=== PATIENT | male | born 1940 | race Caucasian/White ===

== ENCOUNTER → 2017-02-08 | Outpatient (CLI) | payer MEDICARE ==
[~2017-02-08] MED LIST: CLOPIDOGREL BISULFATE 75 MG TABLET ONE; EPTIFIBATIDE BOLUS 2,000 MCG/ML 10ML VIAL. IV ONE; HEPARIN SODIUM 5,000 UNIT/ML VIAL for PCVC. ONE; IODIXANOL 270 MG/ML 100 ML VIAL. ONE; IV NORMAL SALINE 500ML BAG 500 ML ONE; LIDOCAINE 1% Multi-Dose 20 ML VIAL. ONE; LIDOCAINE 1%/EPI 1:100,000 20 ML VIAL. ONE; hydrALAZINE 20 MG/ML VIAL. ONE
--- NOTE | 2017-02-08 14:02 | PCVCINTER ---
EXAM: 1. AORTOGRAM AND RIGHT LOWER EXTREMITY RUNOFF ANGIOGRAM 2. BILATERAL RENAL ANGIOGRAPHY 3. RIGHT SUPERFICIAL FEMORAL ARTERY ATHERECTOMY AND STENT PLACEMENT. 4. SECONDARY THROMBECTOMY RIGHT SUPERFICIAL FEMORAL ARTERY. 5. DRUG COATED BALLOON ANGIOPLASTY RIGHT POPLITEAL ARTERY. INDICATION: Peripheral arterial disease. Coronary artery disease. Nonhealing ulcer right lower extremity. Hypertension. Renal atherosclerosis. PROCEDURE: Procedure and risks of angiography intervention is appropriate including limb loss stroke and were discussed with the patient's family and consent obtained. The patient's left groin was prepped abnormal sterile fashion. IV conscious sedation was used to procedure with appropriate monitoring from 11:15 AM through 12:45 PM. Ultrasound was used to interrogate the left groin and showed the left common femoral artery to be patent. A permanent spot film was obtained. Under ultrasound guidance access into the left common femoral artery was obtained and a 5 Sinhala sheath was placed. Through this a 5 Sinhala flush catheter was placed into the abdominal aorta at the level of the renal arteries and AP aortogram was performed. Catheter was positioned at the aortic bifurcation and both oblique views of the pelvis were obtained. Catheter was exchanged for a visceral catheter was placed into the right renal arteries and right renal angiograms obtained. Catheter was placed into the the left renal arteries and left renal angiograms were obtained. Catheter was advanced to the level of the right external iliac artery and right leg runoff angiography was obtained. Patient was given 4500 units of heparin. A 6 Sinhala crossover sheath was placed via the left groin to the level of the right common femoral artery. Atherectomy of the right superficial femoral artery was performed with 2.0 mm [employer] laser atherectomy catheter in the standard fashion. Following atherectomy small areas of thrombus were observed and because of this secondary thrombectomy throughout the right superficial femoral artery was carried out with mechanical suction thrombectomy catheter in the standard fashion. Minimal debris was removed. Stent placement across the areas of occlusion in the right artery was carried out with a 6 x 150 and 8 x 40 Smart control stents with subsequent dilatation to 6.0 mm. Following this drug coated balloon angioplasty of the right superficial femoral artery was carried out with a 5 x 80, 6 x 80, 6 x 80, and 6 x 60 Medtronic Admiral [employer] catheters. Follow-up angiogram was performed. Catheters and wires removed. Sheath was removed and hemostasis obtained using the FISH device. No immediate complications. FINDINGS: Aortogram: There is one right and one left renal artery. Mild plaque infrarenal abdominal aorta without significant stenosis. Pelvis: The right and left common and external iliac arteries are patent with mild scattered plaque. The right and left internal iliac arteries are patent. The right and left common femoral and profunda femoral arteries are patent. The proximal left superficial femoral artery is occluded where visualized. Right renal artery: Minimal plaque proximal vessel does not cause significant stenosis. Left renal artery: Minimal plaque proximal vessel does not cause significant stenosis. Right leg: Complete occlusion throughout the mid superficial femoral artery. Refilling of the distal superficial femoral artery. Moderate high-grade stenoses in the mid and distal popliteal artery. Tibioperoneal trunk shows segmental occlusion. There is refilling of a large peroneal artery which is continuous to the ankle to refill the distal most posterior tibial artery. The [place] anterior tibial artery is occluded proximally. A large well-developed collateral refills the mid/distal anterior tibial artery. Right superficial femoral artery: Following procedure as above vessel shows good patency throughout. 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 Areas of significant stenosis mid/distal right popliteal artery with segmental occlusion right tibioperoneal trunk. I'm hopeful by improving the inflow this will allow healing of the patient's right foot wound. I'll follow-up with the patient in 4-6 weeks regarding his progress. If ulceration persists further consideration for treatment of the mid/distal right popliteal and right tibioperoneal trunk disease will be discussed. follow up LOC:[id number]
== END | disposition home or self-care (01) ==
LOC: PCVCINTER 09:23
PROVIDERS: ATTEND Nuclear Medicine Nuclear Cardiology
DX: I70.211 Atherosclerosis of native arteries of extremities with intermittent claudication, right leg (principal); I25.10 Atherosclerotic heart disease of native coronary artery without angina pectoris; I10 Essential (primary) hypertension; I70.1 Atherosclerosis of renal artery
CPT/HCPCS: 36252; 37186; 37227; 75710; 76937; 99152; 99153; C1725; C1751; C1757; C1760; C1769; C1876; C1885; C1887; C1894; C2623; J0360; J0690; J1327; J1644; J3490; J7040; Q9966; 75716

== ENCOUNTER → 2017-02-16 | Outpatient (CLI) | payer MEDICARE | END | disposition home or self-care (01) | LOC: PCVCCLINIC 13:20 | PROVIDERS: ATTEND Internal Medicine Cardiovascular Disease | DX: I25.810 Atherosclerosis of coronary artery bypass graft(s) without angina pectoris (principal); I48.1 Persistent atrial fibrillation; I73.9 Peripheral vascular disease, unspecified; E78.00 Pure hypercholesterolemia, unspecified; I12.9 Hypertensive chronic kidney disease with stage 1 through stage 4 chronic kidney disease, or unspecified chronic kidney disease; N18.9 Chronic kidney disease, unspecified; I25.2 Old myocardial infarction; Z89.612 Acquired absence of left leg above knee; Z79.01 Long term (current) use of anticoagulants; Z95.1 Presence of aortocoronary bypass graft; Z79.82 Long term (current) use of aspirin; Z79.899 Other long term (current) drug therapy | CPT/HCPCS: 80061; 93005; G0463 ==

== ENCOUNTER → 2017-03-15 | Outpatient (CLI) | payer MEDICARE | END | disposition home or self-care (01) | LOC: PCVCIMAG 14:06 | DX: I73.9 Peripheral vascular disease, unspecified (principal); I65.23 Occlusion and stenosis of bilateral carotid arteries | CPT/HCPCS: 80061; 93005; 93880; 93926; G0463 ==

== ENCOUNTER → 2017-06-23 | Outpatient (CLI) | payer MEDICARE | END | disposition home or self-care (01) | LOC: PCVCCLINIC 13:00 | DX: I25.10 Atherosclerotic heart disease of native coronary artery without angina pectoris (principal); E78.5 Hyperlipidemia, unspecified; I48.2 Chronic atrial fibrillation; I12.9 Hypertensive chronic kidney disease with stage 1 through stage 4 chronic kidney disease, or unspecified chronic kidney disease; N18.4 Chronic kidney disease, stage 4 (severe); I73.9 Peripheral vascular disease, unspecified; I77.9 Disorder of arteries and arterioles, unspecified; R94.31 Abnormal electrocardiogram [ECG] [EKG]; Z79.82 Long term (current) use of aspirin; Z79.899 Other long term (current) drug therapy | CPT/HCPCS: 80061; 93005; G0463 ==

== ENCOUNTER → 2017-09-22 | Outpatient (CLI) | payer MEDICARE | END | disposition home or self-care (01) | LOC: PCVCCLINIC 16:13 | DX: I12.9 Hypertensive chronic kidney disease with stage 1 through stage 4 chronic kidney disease, or unspecified chronic kidney disease (principal); N18.9 Chronic kidney disease, unspecified; I25.810 Atherosclerosis of coronary artery bypass graft(s) without angina pectoris; I73.9 Peripheral vascular disease, unspecified; I25.5 Ischemic cardiomyopathy; I48.91 Unspecified atrial fibrillation; I48.92 Unspecified atrial flutter; E78.00 Pure hypercholesterolemia, unspecified; I77.9 Disorder of arteries and arterioles, unspecified; Z79.82 Long term (current) use of aspirin; Z79.899 Other long term (current) drug therapy | CPT/HCPCS: 93005; G0463 ==

== ENCOUNTER → 2018-02-20 | Outpatient (CLI) | payer MEDICARE ==
[~2018-02-20] MED LIST changes: -CLOPIDOGREL BISULFATE 75 MG TABLET ONE; -EPTIFIBATIDE BOLUS 2,000 MCG/ML 10ML VIAL. IV ONE; -HEPARIN SODIUM 5,000 UNIT/ML VIAL for PCVC. ONE; -IODIXANOL 270 MG/ML 100 ML VIAL. ONE; -IV NORMAL SALINE 500ML BAG 500 ML ONE; -LIDOCAINE 1% Multi-Dose 20 ML VIAL. ONE; -LIDOCAINE 1%/EPI 1:100,000 20 ML VIAL. ONE; +REGADENOSON 0.4 MG/5 ML DISP.SYRIN. IV ONE; -hydrALAZINE 20 MG/ML VIAL. ONE
--- NOTE | 2018-02-22 17:53 | PCVCIMAG ---
APPROVED REPORT Imaging Protocol: Rest Tc-99m/Stress Tc-99m 1 day Study performed: 02/20/2018 09:41:43 Indication: CAD , Atrial Fibrillation, ICM Patient Location: Out-Patient Stress Nurse: Colleen Kelley RN [place] Tech:Angie Mayfield [facility] Ht: 6 ft 1 in Wt: 235 lbs BSA: 2.30 m2 HR: 85 bpm BP: 162/86 mmHg BMI: 31.0 Rhythm: SR Medical History Medical History: HTN, CAD, PVD, Atrial Fibrillation, Age Medications: Xarelto Allergies: No known drug allergies Previous Cardiac Procedures: CABG 2017 - [place] to LAD and distal LAD; SVG to OM; SVG to PDA Pretest Chest Pain Characteristics: No chest pain Meds Held (24 hrs): Metoprolol Resting Data Rest SPECT myocardial perfusion imaging was performed in supine position 45 minutes following the intravenous injection of 11.2 mCi of Tc-99m Sestamibi. Time of rest injection: 0850 Date: 02/20/2018 Administration Route: IV Administration Site: Right AC Pharmacologic Stress Pharmacologic stress test was performed by injecting Regadenoson 0.4 mg IV push over 10-15 seconds immediately followed by the intravenous injection of 33.6 mCi of Tc-99m Sestamibi. Time of stress injection: 1030 Date: 02/20/2018 Administration Route: IV Administration Site: Right AC Gated Stress SPECT was performed 45 minutes after stress injection. The images were gated to evaluate regional wall motion and calculate left ventricular ejection fraction. Stress Test Details Stress Test: Pharmacologic stress testing performed using 0.4 mg of regadenoson per 5 mL given IV over 10 seconds. Reason for pharmacologic stress test: physical limitation, bilateral BTK amputation. HRMax Heart Rate (APMHR): 144 bpm Resting HR: 85 bpmTarget HR (85% APMHR): 122 bpm Max HR Achieved: 94 bpm % of APMHR: 65 Recovery HR: 78 bpm BP Resting BP: 162/86 mmHg Recovery BP: 136/73 mmHg ECG Resting ECG: SR Stress ECG: AFIB/Fluter Recovery ECG: AFIB/Fluter Clinical Reason for Termination: Completed protocol Stress Symptoms: Dyspnea Exercise duration: 0 min 55 sec Symptoms resolved with caffeine. Stress ECG Conclusion ECG: Non-ischemic Study Data Post stress, the left ventricular ejection was 57%.. SSS: 1 SRS: 4 SDS: 0 TID = 0.95. Perfusion Small sized area of mild reversible ischemia involving the mid inferior left ventricle consistent with a right coronary artery distribution. Wall Motion Normal left ventricular size and function with no regional wall motion abnormalities. Nuclear Conclusion Small sized area of mild reversible ischemia involving the mid inferior left ventricle consistent with a right coronary artery distribution. Normal left ventricular size and function with no regional wall motion abnormalities. Post stress, the left ventricular ejection was 57%. No prior study available for comparison. Interpreted by: Wallace Bowman MD Electronically Approved: 02/20/2018 18:26:38 <Conclusion> ECG: Non-ischemic
== END | disposition home or self-care (01) ==
LOC: PCVCIMAG 15:33
PROVIDERS: ATTEND Internal Medicine Cardiovascular Disease
DX: I48.91 Unspecified atrial fibrillation (principal); I25.10 Atherosclerotic heart disease of native coronary artery without angina pectoris
CPT/HCPCS: 78452; 93017; A9500; J2785